=== PATIENT | male | born 1970 | race Caucasian/White ===

== ENCOUNTER 2019-03-26 07:40 | Inpatient (IN) | payer OTHER ==
[2019-03-26 08:24] LABS: Bilirubin Negative (Negative); Blood, Urine Negative (Negative); Clarity Clear (Clear); Glucose, Urine (Dipstick) Normal (Negative); Leukocyte Negative Leu/uL (Negative); Nitrite Negative (Negative); Protein, Urine (Dipstick) Negative (Neg-Trace); Urobilinogen Normal mg/dL (Less than 2)
--- NOTE | 2019-03-26 08:38 | CT ---
Head CT without contrast 03/26/2019: HISTORY: Altered mental status TECHNIQUE: Axial CT imaging at 5 mm intervals from vertex through skull base without contrast FINDINGS: Visualized paranasal sinuses and mastoid air cells are well aerated. No displaced calvarial fracture, intracranial hemorrhage, midline shift, or mass effect. IMPRESSION: No acute findings.
[2019-03-26 08:39] LABS: #Basophils 0.1 thou/uL (0.0-0.2); #Eosinphils 0.1 thou/uL (0.0-0.7); #Lymphocytes 1.5 thou/uL (1.20-3.40); #Monocytes 0.4 thou/uL (0.11-0.59); #Neutrophils 3.9 thou/uL (1.40-6.50); %Basophils 0.9 % (0.0-1.0); %Eosinophils 2.2 % (0.0-10.0); %Lymphocytes 25.2 % (21.0-51.0); %Monocytes 6.7 % (0.0-10.0); Hemoglobin 14.8 g/dL (14.0-18.0); Mean Corpuscular HGB CONC 34.2 g/dL (32.0-36.0); Mean Corpuscular Hemoglobin 31.1 pg (27.0-31.0); Mean Corpuscular Volume 91.1 fL (78.0-98.0); Platelet Count 206 thou/uL (130-400); RBC Distribution Width 11.3 % (11.5-14.5); Red Blood Cell (RBC) Count 4.75 mill/uL (4.70-6.10)
--- NOTE | 2019-03-26 08:55 | RAD ---
XR Chest 1 View Portable History: Altered metal status Comparison: None. Findings: Lungs are clear. No pneumothorax or effusion. Cardiac silhouette and mediastinal contours a re within normal limits. Impression: No acute intrathoracic abnormality.
[2019-03-26 09:13] LABS: ALT (SGPT) 21 U/L (8-55); AST (SGOT) 10 U/L (5-34); Acetaminophen Less than 6.0 mcg/mL (10.0-30.0); Albumin 4.1 g/dL (3.5-5.0); Alcohol Less than 10 mg/dL (Less than 10); Alkaline Phosphatase 49 U/L (40-110); Anion Gap 9 mmol/L (10-20); BUN (Urea Nitrogen) 10 mg/dL (8.9-20.6); Bilirubin, Total 0.6 mg/dL (0.2-1.2); Calc. Creatinine Clearance 0 mL/min (70-130); Calcium 9.4 mg/dL (7.8-10.44); Carbon Dioxide 28 mmol/L (22-29); Chloride 107 mmol/L (98-107); Estimated GFR-MDRD 76; Globulin 2.4 g/dL (2.4-3.5); Glucose 117 mg/dL (70-105); Protein, Total 6.5 g/dL (6.0-8.3); Salicylate Less than 8.0 mg/dL (15.0-30.0); Sodium 140 mmol/L (136-145)
--- NOTE | 2019-03-26 09:49 | CT ---
CTA ANGIO HEAD WITH AND WITHOUT CONTRAST: HISTORY: Altered mental status. COMPARISON: CT brain same day. FINDINGS: CT angiogram head and neck performed after the intravenous administration of contrast with 3D renderi ng provided. The lung apices are clear. Aortic size is normal. There is anterosuperior dislocation of the left clavicle, chronic in nature, at the sternoclavicular joint. No acute fracture of the cervical spine. Mild reversal of the normal cervical lordosis. Circumferenti al disc osteophyte complexes at C5-C7. No cervical adenopathy. Vessels: The vertebral arteries are patent and relatively codominant. Right common carotid artery is patent as well as the internal carotid artery. No hemodynamically significant stenosis per NASCET criteria. The left common carotid artery is patent. No hemodynamically significant stenosis per NASCET criteria . The [place] is patent without stenosis, thrombosis or aneurysm formation. IMPRESSION: 1. No hemodynamically significant stenosis internal carotid arteries per NASCET criteria. 2. Patent [place] without stenosis, thrombosis or aneurysm formation. Transcribed Date/Time: 03/26/2019 10:01 AM
[2019-03-26 10:07] LABS: Amphetamine Not Detected (NotDetected); Barbiturates Screen Not Detected (NotDetected); Benzodiazepine Screen Not Detected (NotDetected); Cocaine Metabolite Screen Not Detected (NotDetected); Medtox Control Line Valid? VALID (VALID); Medtox Reader # READER 4; Methadone Not Detected (NotDetected); Methamphetamine Not Detected (NotDetected); Opiate Screen Not Detected (NotDetected); Oxycodone Screen Not Detected (NotDetected); Phencyclidine (PCP) Not Detected (NotDetected); THC/Cannabinoid Screen Not Detected (NotDetected); Tricyclic Screen Not Detected (NotDetected)
[2019-03-26] MEDS ORDERED: Aspirin Chewable 81 MG TAB ONE (11:41)
[2019-03-26] MEDS ORDERED: Ondansetron PF 4 MG/2 ML Vial ONE ×2 (11:41→13:54)
[2019-03-26] MEDS ORDERED: ISOVUE-370 76%-LOCM 1 ML ONE (12:19)
[2019-03-26] MEDS ORDERED: Gadobenate Dimeglumine 529 MG/1 ML (20ML VIAL) ONE (12:31)
[2019-03-26 15:10] LABS: Troponin I Less than 0.010 ng/mL (< 0.028)
[2019-03-26] MEDS ORDERED: Acetaminophen 325 MG TAB PO PRN (15:23)
[2019-03-26] MEDS ORDERED: Ondansetron ODT 4 MG TAB SL PRN (15:23)
[2019-03-26] MEDS ORDERED: Ondansetron PF 4 MG/2 ML Vial IVP PRN ×2 (15:23→16:33)
[2019-03-26 15:40] VITALS: BMI 28.6
[2019-03-26] MEDS ORDERED: Acetaminophen 650 MG Suppository PR PRN (16:33)
[2019-03-26] MEDS ORDERED: Ondansetron ODT 4 MG TAB PO PRN (16:33)
--- NOTE | 2019-03-26 18:07 | MRI ---
MR the brain with and without contrast INDICATION: History of double vision COMPARISON: CTA of the head dated March 18, [address] the brain without contrast dated February Contrast: 20 cc of MultiHance FINDINGS: There is an area restricted diffusion involving the superior aspect of the left cerebellum with associated T2 hyperintensity consistent with an acute left cerebellar hemisphere infarct. There are foci of diminished T2 signal seen involving the cortex of both frontal lobes, right parieta l lobe, right occipital lobe and right cerebellum on the diffusion-weighted imaging, gradient echo imaging and T2-weighted imaging. No midline shift is evident. There are appropriate flow voids within the major intracranial vessels. No region of abnormal enhancement is demonstrated. IMPRESSION: 1. Acute left cerebellar hemisphere infarct in the region of the left superior cerebellar artery dist ribution. Findings called to nurse connie Garcia at 5:50 PM on March 18, 2019. 2. Foci of diminished signal intensity involving the cortex of both frontal lobes, right parietal lob e, right occipital lobe and right cerebellum. No corresponding calcifications are seen on the comparison CT evaluation. No abnormal enhancement is demonstrated. Differential considerations includ e interval development of acute petechial hemorrhage, small cavernous malformations or other vascular anomalies or possibly artifact related from intravenous gas from IV access. Repeat CT of the brain without contrast is recommended for additional characterization.
[2019-03-26 18:43] LABS: Troponin I Less than 0.010 ng/mL (< 0.028)
[2019-03-26] MEDS: Sodium Chloride 0.9% 1,000 ML IV SCH (18:49)
--- NOTE | 2019-03-26 19:18 | CT ---
CT Brain WO Con: 03/26/2019 6:17 PM CLINICAL HISTORY: Concern for possible intracranial hemorrhage. IMAGING TECHNIQUE: Multiple CT images were obtained of the brain with and without IV contrast. COMPARISON: MR the brain with and without contrast dated March 26, [address] the br ain dated March 26, 2019. FINDINGS: Brain: There is interval evolutionary change of a left superior cerebellar hemisphere infarct seen o n the recent MR of the brain. The infarct is now visible by CT. The foci of low signal intensity seen on the gradient echo images involving the cortex of the frontal lobes, right parietal lobe, righ t occipital lobe and right cerebellum may have been artifactual possibly related to intravenous gas from IV catheter initiation. No acute intracranial hemorrhage is demonstrated. Ventricles: Normal. No hydrocephalus.. Skull: Intact.. Visualized Paranasal sinuses: Clear.. Mastoid air cells:Clear. Extracranial soft tissues:Normal. IMPRESSION: 1. Evolutionary changes of the left superior cerebellar hemisphere infarct. 2. No intracranial hemorrhage identified. See above.
[2019-03-26] MEDS: Atorvastatin Calcium 40 MG TAB PO SCH (21:19)
[2019-03-26] MEDS: Famotidine/PF 20 mg/2ml Vial SLOW IVP SCH (21:19)
--- NOTE | 2019-03-26 23:25 | ULT ---
BILATERAL CAROTID DUPLEX ULTRASOUND: HISTORY: Stroke TECHNIQUE: Grayscale, color-flow and spectral Doppler ultrasound imaging of the extracranial carotid artery syst ems and vertebral arteries was performed bilaterally. FINDINGS: No large amount of echogenic plaque is seen involving the common carotid or internal carotid arteries . The peak systolic velocity in the right ICA measures 91.1 cm/s. The peak systolic velocity in the ri ght CCA measures 107.5 cm/s. The peak systolic velocity in the left ICA measures 63.5 cm/s. The peak systolic velocity in the l eft CCA measures 97.5 cm/s. The right IC/CC ration is0.85. The left IC/CC ratio is 0.65. Vertebral flow: antegrade, bilaterally. . IMPRESSION: No hemodynamically significant stenosis of bilateral internal carotid arteries.
[2019-03-27 03:56] LABS: #Eosinphils 0.1 thou/uL (0.0-0.7); #Lymphocytes 2.4 thou/uL (1.20-3.40); #Monocytes 0.6 thou/uL (0.11-0.59); %Basophils 0.4 % (0.0-1.0); %Eosinophils 0.9 % (0.0-10.0); %Lymphocytes 23.6 % (21.0-51.0); %Monocytes 6.3 % (0.0-10.0); %Neutrophils 68.8 % (42.0-75.0); Hemoglobin 14.9 g/dL (14.0-18.0); Mean Corpuscular HGB CONC 35.7 g/dL (32.0-36.0); Mean Corpuscular Hemoglobin 32.2 pg (27.0-31.0); Mean Corpuscular Volume 90.1 fL (78.0-98.0); Mean Platelet Volume 7.4 fL (7.4-10.4); Platelet Count 204 thou/uL (130-400); RBC Distribution Width 11.2 % (11.5-14.5); Red Blood Cell (RBC) Count 4.64 mill/uL (4.70-6.10); White Blood Cell (WBC) Count 10.2 thou/uL (4.8-10.8)
[2019-03-27 04:15] LABS: Anion Gap 10 mmol/L (10-20); BUN (Urea Nitrogen) 8 mg/dL (8.9-20.6); Calc. Creatinine Clearance 128 mL/min (70-130); Calcium 9.1 mg/dL (7.8-10.44); Carbon Dioxide 25 mmol/L (22-29); Cardiac Risk 3.5 (Less than 4.5); Chloride 107 mmol/L (98-107); Cholesterol 149 mg/dl (< 200 Desired); Estimated GFR-MDRD Greater than 90; Glucose 110 mg/dL (70-105); HDL Cholesterol 43 mg/dL (>60 Neg Risk); LDL Cholesterol, Calculated 80 mg/dL; Potassium 3.4 mmol/L (3.5-5.1); Sodium 139 mmol/L (136-145); Triglycerides 130 mg/dL (Less than 150)
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
[2019-03-27] MEDS: Sodium Chloride 0.9% 1,000 ML IV SCH ×2 (07:58→18:20)
[2019-03-27] MEDS ORDERED: FLU VACC QS2019-20(6MOS UP)/PF 60 MCG/0.5 ML SYRINGE IM ONE (09:00)
--- NOTE | 2019-03-27 10:07 | CT ---
CTA ANGIO HEAD WITH AND WITHOUT CONTRAST: HISTORY: Altered mental status. COMPARISON: CT brain same day. FINDINGS: CT angiogram head and neck performed after the intravenous administration of contrast with 3D renderi ng provided. The lung apices are clear. Aortic size is normal. There is anterosuperior dislocation of the left clavicle, chronic in nature, at the sternoclavicular joint. No acute fracture of the cervical spine. Mild reversal of the normal cervical lordosis. Circumferenti al disc osteophyte complexes at C5-C7. No cervical adenopathy. Vessels: The vertebral arteries are patent and relatively codominant. Right common carotid artery is patent as well as the internal carotid artery. No hemodynamically significant stenosis per NASCET criteria. The left common carotid artery is patent. No hemodynamically significant stenosis per NASCET criteria . The [place] is patent without stenosis, thrombosis or aneurysm formation. IMPRESSION: 1. No hemodynamically significant stenosis internal carotid arteries per NASCET criteria. 2. Patent [place] without stenosis, thrombosis or aneurysm formation. Transcribed Date/Time: 03/27/2019 10:06 AM
[2019-03-27] MEDS: Famotidine/PF 20 mg/2ml Vial SLOW IVP SCH ×2 (10:39→20:36)
[2019-03-27] MEDS: Aspirin 81 mg Enteric Coated Tablet PO SCH (10:39)
--- NOTE | 2019-03-27 14:36 | PDOC.HOSPP ---
- Subjective Encounter Date: 03/27/19 Encounter Time: 11:00 Subjective: c/o right sided weakness and left leg weakness is right handed no trouble swallowing or seeing - Objective Vital Signs & Weight: Vital Signs (12 hours) Temp Pulse Pulse Resp BP BP Pulse Ox 03/27/19 12:00 98.4 F 53 L 12 141/67 H 97 03/27/19 08:38 49 L 147/80 H 03/27/19 08:00 97.8 F 57 L 12 143/81 H 97 03/27/19 03:54 98.7 F 53 L 16 138/73 96 Weight Weight 188 lb 4 oz Result Diagrams: 03/27/19 03:09 03/27/19 03:09 Hospitalist ROS - Medication Medications: Active Medications Generic Name Dose Route Start Last Admin Trade Name Freq PRN Reason Stop Dose Admin Aspirin 81 mg 03/27/19 09:00 03/27/19 10:39 Ecotrin PO 81 mg DAILY DENNY Administration Atorvastatin Calcium 40 mg 03/26/19 21:00 03/26/19 21:19 Lipitor PO 40 mg HS DENNY Administration Famotidine 20 mg 03/26/19 21:00 03/27/19 10:39 Pepcid SLOW IVP 20 mg Q12HR DENNY Administration Sodium Chloride 1,000 mls @ 100 mls/hr 03/26/19 16:45 03/27/19 07:58 Normal Saline 0.9% IV 1,000 mls .Q10H DENNY Administration Sodium Chloride 10 ml 03/26/19 16:33 03/26/19 21:20 Flush - Normal Saline IVF 10 ml Q12H PRN Administration Saline Flush - Exam General Appearance: awake alert Eye: PERRL, anicteric sclera ENT: no oropharyngeal lesions, moist mucosa Neck: supple, no JVD Heart: RRR, no murmur Respiratory: no wheezes, no rales Gastrointestinal: soft, non-tender, non-distended, normal bowel sounds Extremities: no cyanosis, no edema Skin: normal turgor, no rashes Neurological: cranial nerve grossly intact Neurological - other findings: 4/5 strength on right extremities, mostly normal Musculoskeletal: normal tone, normal strength Psychiatric: A&O x 3 Hosp A/P (1) Acute cerebrovascular accident of cerebellum Code(s): I63.9 - CEREBRAL INFARCTION, UNSPECIFIED Status: Acute (2) HTN (hypertension) Code(s): I10 - ESSENTIAL (PRIMARY) HYPERTENSION Status: Acute Qualifiers: Hypertension type: essential hypertension Qualified Code(s): I10 - Essential (primary) hypertension - Plan MRI confirms left cerebellar cva ldl is 80mg on asp, lipitor gentle iv hydration heart healthy diet speech, PT/OT eval echo pending, usg carotids no stenosis. Reviewed all imaging for brain.
--- NOTE | 2019-03-27 16:02 | CON ---
DATE OF TELEMEDICINE CONSULTATION: 03-28-19 CHIEF COMPLAINT: Acute stroke. HISTORY OF PRESENT ILLNESS: The patient is a 49-year-old man who has history of sudden onset of symptoms yesterday morning. His gave me most of the medical history. Generally, there are days when he has difficulty waking up. He is not very coherent in the morning some days and that has been happening for the last 2 to 3 years. The patient stated he takes [id number] sleep aids at midnight and he goes to sleep because he is not able to fall asleep and therefore, he gets slightly disoriented in the morning. The patient woke up yesterday, he was coherent. He folded up the futon, then said, "oh shit". He is feeling like passing out, then he passed out. He would not wake up. He was sitting and passed out. She called 911 and they told her to lie him down flat and he was asleep for 15 minutes until EMS arrived. At that point, he sat up, but his eyes were not normal. His eyes were apart and he was confused and he was seeing differently. He said he could see parts of the room. He felt everything was moving when he stood up. There is no history of any tinnitus. He was conscious, answered questions, but had some difficulty with speech. His body was flopping around and he was still talking to EMS, but after they picked him up, he started throwing up. PREVIOUS MEDICAL HISTORY: Depression. PREVIOUS SURGICAL HISTORY: The patient has had history of back surgery, ankle surgery, and left knee surgery. SOCIAL HISTORY: Smokes half pack a day. 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 Not sure if he has exposure to toxins at work. He is , lives with his family and does not drink alcohol on a regular basis. FAMILY HISTORY: Both parents had CVA and they are 65 years of age. His grandmother passed from an AK. Mother has a pacemaker. He is an only child. REVIEW OF SYSTEMS: PULMONARY: Negative for shortness of breath or cough. GI: Negative for nausea, vomiting, or diarrhea. DERMATOLOGIC: Negative for any skin rash. OPHTHALMOLOGIC: Positive for vision symptoms. ENT: Negative for any dizziness or tinnitus. NEUROLOGICAL: Positive for confusion. LABORATORY DATA: White count 10.2, hemoglobin 14.9, hematocrit 41.8, and platelet count 204. Chemistry; sodium 139, potassium 3.4, chloride 107, bicarb 25, BUN 8 , creatinine 0.85, glucose 110, and calcium 9.1. Cholesterol within normal limits. His MRI of the brain was completed and MRI showed left superior cerebellar artery acute infarct and he has foci of diminished signal intensity in the cortex of both frontal lobe, right parietal lobe, right occipital and right cerebellum. No enhancement is demonstrated. Differential consideration includes acute interval development with acute petechial hemorrhage, small cavernous malformation or other vascular abnormalities from IV gas, from IV access. Repeat CT without contrast is recommended and the brain CT was repeated yesterday evening and the CT showed evolutionary changes of left superior cerebellar infarct, and no intracranial hemorrhage and they suggested that the low signal intensity is more artifactual likely secondary to intravenous gas. PHYSICAL EXAMINATION: VITAL SIGNS: Temperature 97.8, pulse 57, respiratory rate 12, O2 sats 97, and blood pressure 143/81. GENERAL APPEARANCE: Well-built, well-nourished man, who seems very drowsy. CHEST: Clear vesicular breathing. CARDIOVASCULAR: S1 and S2 heard. No murmurs. ABDOMEN: Soft. NEUROLOGICAL: Higher intellectual functions. He seems drowsy, but wakes up and talk and is interactive. Cranial nerves, he had dysconjugate gaze on the left eye and on extraocular movement exam, he has horizontal gaze nystagmus and his left eye is lagging. He also had left facial droop and decreased sensation on the right face and palate elevation is normal. Tongue was midline. Motor, bulk normal, tone normal. Strength, 5/5 throughout except for left arm. He had mild left arm weakness, mostly in the distal extensors at 4/5. Muscle groups tested, iliopsoas, hamstrings, quadriceps, ankle dorsiflexion, plantar flexion, deltoid, biceps, triceps, wrist extension and flexion, finger extension and flexion. Sensation was normal bilaterally in the lower extremities and cerebellar was normal bilaterally. IMPRESSION: The patient with left superior cerebellar infarct and has vision disturbance from this location of the infarct with involvement of left sixth nerve, which is causing him to have dysconjugate gaze and he also has horizontal gaze nystagmus. Diagnosis is most consistent with acute stroke and CT angiography of the head and neck was performed, which did not show any thrombus or aneurysm formation. We can conclude based on this report that this is likely cardioembolic event. RECOMMENDATIONS: Echocardiogram to evaluate possible PFO and therapy for his ocular muscles as well as physical therapy. Aspirin for stroke prophylaxis along with statin. He will eventually need a sleep study to evaluate his sleep disorder as well since he is having to rely on [id number] sleep medications. At this time, I think he can be discharged if workup is completed and he remained stable , he can be discharged to inpatient rehab. Job ID: [id number] [facility]
[2019-03-27] MEDS: Atorvastatin Calcium 40 MG TAB PO SCH (20:36)
[2019-03-28] MEDS: Sodium Chloride 0.9% 1,000 ML IV SCH ×2 (04:18→09:35)
[2019-03-28] MEDS: Famotidine/PF 20 mg/2ml Vial SLOW IVP SCH ×2 (09:34→20:48)
[2019-03-28] MEDS: Aspirin 81 mg Enteric Coated Tablet PO SCH (09:34)
[2019-03-28] MEDS: Meclizine HCl 25 MG TAB PO PRN (09:35)
[2019-03-28] MEDS: Acetaminophen 325 MG TAB PO PRN ×2 (11:34→20:48)
--- NOTE | 2019-03-28 13:28 | PDOC.HOSPP ---
- Subjective Encounter Date: 03/28/19 Subjective: Pt seen in the room , says he feeling better , c/o mild dizziness and says has double vision , Was able to walk with PT - Objective Vital Signs & Weight: Vital Signs (12 hours) Temp Pulse Resp BP Pulse Ox 03/28/19 12:00 99.2 F 48 L 20 146/78 H 98 03/28/19 08:15 96 03/28/19 08:00 98.2 F 47 L 12 145/84 H 96 03/28/19 03:46 98.5 F 48 L 16 126/70 96 Weight Weight 188 lb 4 oz I&O: 03/27/19 03/28/19 03/29/19 06:59 06:59 06:59 Intake Total 2700 Output Total 550 200 Balance 2150 -200 Result Diagrams: 03/27/19 03:09 03/27/19 03:09 Hospitalist ROS - Review of Systems Constitutional: reports: weakness Eyes: reports: vision change ENT: denies: ear pain Respiratory: denies: cough Cardiovascular: denies: chest pain Gastrointestinal: denies: nausea Musculoskeletal: denies: neck pain Neurological: reports: other (DOUBLE VISION) - Medication Medications: Active Medications Generic Name Dose Route Start Last Admin Trade Name Freq PRN Reason Stop Dose Admin Acetaminophen 650 mg 03/26/19 16:33 03/28/19 11:34 Tylenol PO 650 mg Q4H PRN Administration Headache/Fever/Mild Pain (1-3) Aspirin 81 mg 03/27/19 09:00 03/28/19 09:34 Ecotrin PO 81 mg DAILY DENNY Administration Atorvastatin Calcium 40 mg 03/26/19 21:00 03/27/19 20:36 Lipitor PO 40 mg HS DENNY Administration Famotidine 20 mg 03/26/19 21:00 03/28/19 09:34 Pepcid SLOW IVP 20 mg Q12HR DENNY Administration Meclizine HCl 25 mg 03/26/19 15:44 03/28/19 09:35 Antivert PO 25 mg Q8H PRN Administration Dizziness Sodium Chloride 10 ml 03/26/19 16:33 03/27/19 20:37 Flush - Normal Saline IVF 10 ml Q12H PRN Administration Saline Flush - Exam General Appearance: awake alert Eye: anicteric sclera ENT: normocephalic atraumatic Neck: supple Heart: no murmur Respiratory: CTAB Gastrointestinal: soft Extremities: no cyanosis Neurological: cranial nerve grossly intact Musculoskeletal: normal tone Psychiatric: normal affect Hosp A/P - Plan Acute cerebrovascular accident of cerebellum With right hemiparesis MRI posoitive for acute findings , CTA neg ,Echo neg for acute findings ldl is 80mg on asp, lipitor heart healthy diet Continue speech, PT/OT eval HTN (hypertension) Continue monitoring BP Sinus bradycardia Hr occasionally goes to 30 as per nursing staff Has chronic bradycardia and had neg work up in the past possible due to athletes activity , cardiology consulted DVT/GI prophaylxis Plan Discussed with pt , and nursing staff
[2019-03-28 15:33] LABS: ANA Symphony (Qualitative) Negative (Negative); ANA Symphony (Quantitative) 0.1 Ratio (< 0.7 Negative); dsDNA IgG Antibody Less than 0.5 IU/mL (<10 Negative)
[2019-03-28] MEDS: Atorvastatin Calcium 40 MG TAB PO SCH (20:48)
[2019-03-28] MEDS: Melatonin 3 MG TAB PO PRN (21:01)
--- NOTE | 2019-03-28 22:15 | CON ---
DATE OF CONSULTATION: HISTORY OF PRESENT ILLNESS: Elvis Ozuna is a 49-year-old white male smoker who presented 2 days ago with feeling of weakness as well as his found him somewhat unresponsive and snoring. She called EMS and the patient awoke on his own, but had some memory loss. He also complained of some difficulty in seeing out of his left eye. He has been found to have acute left cerebellar hemispheric stroke. CT angiography and CT of [place] revealed no hemodynamically significant stenosis or aneurysm. He also has been found to be bradycardic with heart rate in the lower 40s. He denies any history of lightheadedness or dizziness prior to this episode. He has never had a syncopal episode. PAST MEDICAL HISTORY: Depression. PAST SURGICAL HISTORY: Back surgery, bilateral ankle surgery, left knee surgery , spine surgery. MEDICATIONS: None. ALLERGIES: NONE. SOCIAL HISTORY: He smokes 1 pack per day. He occasionally drinks. REVIEW OF SYSTEMS: A 10-point review of systems is otherwise unremarkable. PHYSICAL EXAMINATION: VITAL SIGNS: 140/80, pulse 48. HEENT: PERRL. NECK: Supple. CHEST: Clear. CARDIAC: S1 and S2 normal without any S3, S4, or murmurs. ABDOMEN: Normal bowel sounds without tenderness. EXTREMITIES: Reveal no clubbing, cyanosis, or edema. NEUROLOGIC: Mild left facial droop. Normal strength. IMAGING: Echocardiogram revealed ejection fraction of 55% to 60% with normal diastolic function, mildly dilated left atrium, mitral valve prolapse of the anterior leaflet, mild mitral regurgitation, mild tricuspid regurgitation, mild pulmonic regurgitation. A small PFO could not be ruled out. LABORATORY DATA: Sodium 139, potassium 3.4, chloride 107, carbon dioxide 25, BUN 8, creatinine 0.85, cholesterol 149, triglycerides 130, HDL 43, LDL 80. TSH is normal. Troponin I is unremarkable. Hemoglobin 14.9, hematocrit 41.8, white count 29862, platelets 204,000. Urine drug screen is unremarkable. AI screen is unremarkable. IMPRESSION: 1. Left superior cerebellar infarct, visual disturbance with involvement of the left 6th nerve. 2. Bradycardia, which appears to be asymptomatic. 3. Smoker. RECOMMENDATIONS: The patient will continue to be monitored. However, I do not feel that his bradycardia is attributed to his symptoms. He states his says that he snores and he certainly may have some degree of sleep apnea with sleeping problems. He will undergo transesophageal echo to rule at patent foramina ovale. The procedure and risks were then discussed with the patient. Job ID: [id number] [facility]
[2019-03-29] MEDS: Famotidine/PF 20 mg/2ml Vial SLOW IVP SCH ×2 (09:23→20:10)
[2019-03-29] MEDS: Aspirin 81 mg Enteric Coated Tablet PO SCH (09:23)
[2019-03-29] MEDS: Acetaminophen 325 MG TAB PO PRN (10:21)
[2019-03-29] MEDS ORDERED: PROPOFOL 20 ML ONE (10:54)
[2019-03-29] MEDS ORDERED: Glycopyrrolate 0.2 MG/ML 5 ML SYRINGE ONE (10:59)
[2019-03-29] MEDS: Meclizine HCl 25 MG TAB PO PRN (11:58)
[2019-03-29] MEDS ORDERED: PROPOFOL 200 MG/20 ML VIAL ONE (12:14)
--- NOTE | 2019-03-29 15:27 | OP ---
DATE OF PROCEDURE: 03/29/2019 PROCEDURE PERFORMED: Transesophageal echocardiogram. INDICATION: A 49-year-old gentleman with CVA. DESCRIPTION OF PROCEDURE: The patient was taken to the PACU. The patient was sedated by Anesthesiology. A transesophageal probe was placed into the distal esophagus and stomach. Echocardiographic images were obtained. The transesophageal probe was removed. FINDINGS: 1. Normal left ventricular systolic function. 2. Normal mitral aortic valves. 3. Mild mitral regurgitation. 4. Large interatrial septal aneurysm. 5. PFO noted by contrast bubble exam. IMPRESSION: Interatrial septal aneurysm with a patent foramen ovale. Job ID: [id number]
--- NOTE | 2019-03-29 17:15 | PDOC.HOSPP ---
- Subjective Encounter Date: 03/29/19 Subjective: Pt seen admitted with acute CVA , dizziness double vision , MRI positive for left cerebellar infarct Echo positive for PFO and intraterial aneyrysm , Pt says over all feeling better double vision getting better - Objective Vital Signs & Weight: Vital Signs (12 hours) Temp Pulse Pulse Pulse Resp BP BP 03/29/19 16:00 98.1 F 45 L 14 03/29/19 11:57 98.8 F 56 L 16 03/29/19 11:36 98.5 F 55 L 16 03/29/19 08:55 60 54 L 132/85 132/85 03/29/19 08:00 99.2 F 45 L 15 BP BP Pulse Ox 03/29/19 16:00 139/74 95 03/29/19 11:57 136/80 96 03/29/19 11:36 136/80 97 03/29/19 08:55 03/29/19 08:00 144/76 H 99 Weight Weight 188 lb 4 oz I&O: 03/28/19 03/29/19 03/30/19 06:59 06:59 06:59 Intake Total 2700 Output Total 550 200 Balance 2150 -200 Result Diagrams: 03/27/19 03:09 03/27/19 03:09 Hospitalist ROS - Review of Systems Constitutional: denies: fever Eyes: reports: vision change. denies: pain ENT: denies: ear pain Respiratory: denies: cough Cardiovascular: denies: chest pain Gastrointestinal: denies: nausea Musculoskeletal: denies: neck pain Neurological: reports: weakness - Medication Medications: Active Medications Generic Name Dose Route Start Last Admin Trade Name Fredyq PRN Reason Stop Dose Admin Acetaminophen 650 mg 03/26/19 16:33 03/29/19 10:21 Tylenol PO 650 mg Q4H PRN Administration Headache/Fever/Mild Pain (1-3) Aspirin 81 mg 03/27/19 09:00 03/29/19 09:23 Ecotrin PO 81 mg DAILY DENNY Administration Atorvastatin Calcium 40 mg 03/26/19 21:00 03/28/19 20:48 Lipitor PO 40 mg HS DENNY Administration Famotidine 20 mg 03/26/19 21:00 03/29/19 09:23 Pepcid SLOW IVP 20 mg Q12HR DENNY Administration Meclizine HCl 25 mg 03/26/19 15:44 03/29/19 11:58 Antivert PO 25 mg Q8H PRN Administration Dizziness Melatonin 3 mg 03/28/19 20:54 03/28/19 21:01 Melatonin PO 3 mg HS PRN Administration Insomnia Sodium Chloride 10 ml 03/26/19 16:33 03/27/19 20:37 Flush - Normal Saline IVF 10 ml Q12H PRN Administration Saline Flush - Exam General Appearance: awake alert Eye: anicteric sclera ENT: normocephalic atraumatic Neck: supple Heart: no murmur Respiratory: no wheezes Gastrointestinal: soft Extremities: no cyanosis Neurological: no new deficit Hosp A/P - Plan Acute cerebrovascular accident of cerebellum With right hemiparesis and diplopia MRI posoitive for acute Left cerrebellar infarct , CTA neg , TTE Echo neg for acute findings , NICO positive for PFO and intratrial aneurysm f/u cardiology/ neuro if any further intervention needed will get DVT study lower legs , ,ldl is 80mg on asp, lipitor , Continue heart healthy diet Continue speech, PT/OT eval , Pending In patient rehab , as per patient diplopia getting better HTN (hypertension) Continue monitoring BP Sinus bradycardia Hr occasionally goes to 30 as per nursing staff Has chronic bradycardia and had neg work up in the past possible due to athletes activity , cardiology consult appreciated recommended no intervention DVT/GI prophaylxis Plan Discussed with pt , and nursing staff
--- NOTE | 2019-03-29 18:17 | ULT ---
VENOUS DUPLEX SONOGRAM BILATERAL LOWER EXTREMITY: 03/29/19 HISTORY: Bilateral leg pain and edema. FINDINGS: Each common femoral vein and greater saphenous junction were evaluated along with each femoral, deep femoral, popliteal, and posterior tibial vein. There is good color and spectral Doppler flow, ryanne sarai, and augmentation. IMPRESSION: No sonographic evidence of DVT within either lower extremity. POS: BST
[2019-03-29] MEDS: Melatonin 3 MG TAB PO PRN (20:10)
[2019-03-29] MEDS: Atorvastatin Calcium 40 MG TAB PO SCH (20:10)
[2019-03-30] MEDS: Meclizine HCl 25 MG TAB PO PRN ×2 (11:16→20:38)
[2019-03-30] MEDS: Famotidine/PF 20 mg/2ml Vial SLOW IVP SCH (11:16)
[2019-03-30] MEDS: Aspirin 81 mg Enteric Coated Tablet PO SCH (11:16)
--- NOTE | 2019-03-30 18:05 | PDOC.HOSPP ---
- Subjective Encounter Date: 03/30/19 Subjective: Pt seen feeling better ,says symptoms of double vision and dizziness getting better - Objective Vital Signs & Weight: Vital Signs (12 hours) Temp Pulse Pulse Resp BP BP Pulse Ox 03/30/19 15:59 98.2 F 62 16 130/80 98 03/30/19 11:50 98.5 F 58 L 16 131/77 98 03/30/19 08:56 51 L 143/79 H 03/30/19 07:55 99 03/30/19 07:42 98.1 F 43 L 16 129/84 99 Weight Weight 188 lb 4 oz I&O: 03/29/19 03/30/19 03/31/19 06:59 06:59 06:59 Intake Total 600 Output Total 200 Balance -200 600 Result Diagrams: 03/27/19 03:09 03/27/19 03:09 Hospitalist ROS - Review of Systems Constitutional: denies: fever Eyes: reports: pain, vision change ENT: reports: ear pain Respiratory: denies: cough Cardiovascular: denies: chest pain Gastrointestinal: denies: nausea Genitourinary: denies: dysuria Musculoskeletal: denies: neck pain Neurological: denies: weakness - Medication Medications: Active Medications Generic Name Dose Route Start Last Admin Trade Name Freq PRN Reason Stop Dose Admin Acetaminophen 650 mg 03/26/19 16:33 03/29/19 10:21 Tylenol PO 650 mg Q4H PRN Administration Headache/Fever/Mild Pain (1-3) Aspirin 81 mg 03/27/19 09:00 03/30/19 11:16 Ecotrin PO 81 mg DAILY DENNY Administration Atorvastatin Calcium 40 mg 03/26/19 21:00 03/29/19 20:10 Lipitor PO 40 mg HS DENNY Administration Meclizine HCl 25 mg 03/26/19 15:44 03/30/19 11:16 Antivert PO 25 mg Q8H PRN Administration Dizziness Melatonin 3 mg 03/28/19 20:54 03/29/19 20:10 Melatonin PO 3 mg HS PRN Administration Insomnia Sodium Chloride 10 ml 03/26/19 16:33 03/29/19 20:10 Flush - Normal Saline IVF 10 ml Q12H PRN Administration Saline Flush - Exam General Appearance: awake alert Eye: anicteric sclera ENT: normocephalic atraumatic Neck: supple Heart: no murmur Respiratory: no wheezes Gastrointestinal: soft Extremities: no cyanosis Skin: normal turgor Neurological: no new deficit Musculoskeletal: normal tone Psychiatric: normal affect, A&O x 3 Hosp A/P - Plan Acute cerebrovascular accident of cerebellum With right hemiparesis and diplopia MRI posoitive for acute Left cerrebellar infarct , CTA neg , TTE Echo neg for acute findings , NICO positive for PFO and intratrial aneurysm cardiology recommended to continue aspirin DVT study neg lower legs , ,ldl is 80mg on asp, lipitor , Continue heart healthy diet Continue speech, PT/OT eval , Pending In patient rehab transfer possible in am , HTN (hypertension) Continue monitoring BP Sinus bradycardia Hr occasionally goes to 30 as per nursing staff Has chronic bradycardia and had neg work up in the past possible due to athletes activity , cardiology consult appreciated recommended no intervention DVT/GI prophaylxis Plan Discussed with pt , and nursing staff
[2019-03-30] MEDS: Famotidine 20 MG TAB PO SCH (20:39)
[2019-03-30] MEDS: Atorvastatin Calcium 40 MG TAB PO SCH (20:39)
[2019-03-31 00:13] VITALS: TEMP 98.1
[2019-03-31] MEDS: Aspirin 81 mg Enteric Coated Tablet PO SCH (09:03)
[2019-03-31] MEDS: Famotidine 20 MG TAB PO SCH (09:03)
[2019-03-31 12:06] VITALS: BP 140/80
[2019-03-31] MEDS: Meclizine HCl 25 MG TAB PO PRN (12:36)
--- NOTE | 2019-03-31 13:24 | DIS ---
DATE OF ADMISSION: 03/26/2019 DATE OF DISCHARGE: 03/31/2019 PRIMARY CARE PROVIDER: ROBINSON Moreno. DISCHARGE DIAGNOSES: 1. Acute ischemic cerebrovascular accident. 2. Cerebellar cerebrovascular accident. 3. Patent foramen ovale. 4. Sinus bradycardia. 5. Hypokalemia. CONDITION OF PATIENT ON THE DAY OF DISCHARGE: Stable. I assessed Mr. Ozuna on the day of discharge. He denies any chest pain or shortness of breath. Vital signs are stable. S1 and S2 are heard, regular. Lungs are clear to auscultation bilaterally. CONSULTATIONS DURING THIS HOSPITALIZATION: Neurology, Dr. Howard and Cardiology, Dr. Adame. POST-DISCHARGE FOLLOWUP: With primary care provider in 1 week's time and with Cardiology, Dr. Adame in 2 to 3 weeks' time. HOSPITAL COURSE: Mr. Ozuna is a pleasant 49-year-old gentleman, who was admitted to [facility] on March 26, 2019, for acute ischemic cerebrovascular accident. MRI of the brain showed acute left cerebellar infarct. CT angiogram was negative. Transthoracic echocardiogram was negative for acute findings. Transesophageal echocardiogram was positive for patent foramen ovale. Cardiology recommended to continue aspirin. Lower extremity Dopplers were negative for any DVT. The patient was seen by [facility]. He is being transferred to inpatient rehab for further management. He also had carotid Dopplers, which did not show any significant stenosis of bilateral internal carotid arteries. Many thanks for allowing me to participate in your patient's care. Please feel free to contact me with any questions or concerns. DISCHARGE MEDICATIONS: 1. Aspirin 81 mg daily. 2. Lipitor 40 mg at bedtime. 3. Meclizine 25 mg every 8 hours as needed. 4. Melatonin 3 mg at bedtime as needed. 5. Zofran 4 mg every 6 hours as needed. DISCHARGE DESTINATION: [facility]. TIME SPENT: Total amount of time spent coordinating this discharge: 33 minutes. Job ID: [id number]
== END 2019-03-31 15:15 | DRG 65 ==
LOC: ERS 07:40 → OBSVTOIN 14:12 → T4-B 14:12 → 2SE 17:55
PROVIDERS: ADMIT Internal Medicine; ATTEND Internal Medicine
PROC: B24BZZ4 Ultrasonography of Heart with Aorta, Transesophageal (ICD-10-PCS; principal; 2019-03-29)
DX: I63.542 Cerebral infarction due to unspecified occlusion or stenosis of left cerebellar artery (principal); Q21.1 Atrial septal defect; G81.91 Hemiplegia, unspecified affecting right dominant side; R00.1 Bradycardia, unspecified; E87.6 Hypokalemia; F17.200 Nicotine dependence, unspecified, uncomplicated; R29.700 NIHSS score 0; R40.2142 Coma scale, eyes open, spontaneous, at arrival to emergency department; R40.2362 Coma scale, best motor response, obeys commands, at arrival to emergency department; R40.2252 Coma scale, best verbal response, oriented, at arrival to emergency department; F32.9 Major depressive disorder, single episode, unspecified; I10 Essential (primary) hypertension; H53.2 Diplopia; Z86.14 Personal history of Methicillin resistant Staphylococcus aureus infection
CPT/HCPCS: 36415; 70450; 70496; 70498; 70553; 71045; 80048; 80053; 80061; 80306; 80307; 81003; 84443; 84484; 85025; 85652; 86038; 86225; 90471; 90686; 90732; 93005; 93306; 93312; 93880; 93970; 96361; 96374; 96376; A9577; G0008; G0009; J2405; J2704; J8597; Q9966; S0028

== ENCOUNTER 2025-04-30 10:24 | Outpatient (CLI) | payer OTHER | END 2025-04-30 10:25 | disposition home or self-care (01) | LOC: BICRAD 10:24 | PROVIDERS: ATTEND Student in an Organized Health Care Education/Training Program | DX: Z02.71 Encounter for disability determination (principal); M13.0 Polyarthritis, unspecified; M47.816 Spondylosis without myelopathy or radiculopathy, lumbar region; M17.11 Unilateral primary osteoarthritis, right knee; M47.812 Spondylosis without myelopathy or radiculopathy, cervical region; Z98.890 Other specified postprocedural states | CPT/HCPCS: 72040; 72100 ==